=== PATIENT | female | born 2000 | race African-American/Black ===

== ENCOUNTER 2021-05-12 21:07 | Emergency (ER) | payer MEDICAID ==
[~2021-05-12] VITALS: Ht 160 cm; Wt 48.0 kg
[2021-05-12] MEDS ORDERED: ACETAMINOPHEN 325MG TABLET PO STA (21:33)
[2021-05-12] MEDS ORDERED: ONDANSETRON HCL 4MG/2ML INJ IV STA (22:47)
[2021-05-12] MEDS ORDERED: MORPHINE SULFATE 4 MG/ML CPJ (NOT FOR IM USE) IV STA (22:47)
[2021-05-12] MEDS ORDERED: SODIUM CHLORIDE 0.9% 1,000 ML IV ONE (23:00)
[2021-05-12 23:28] VITALS: BP 116/79
[2021-05-12 23:47] LABS: BASOPHILS % 0.4 % (0.0-2.0); EOSINOPHILS % 0.8 % (0.0-5.0); HEMATOCRIT. 36.1 % (36.0-48.0); HEMOGLOBIN. 11.9 g/dL (12.0-16.0); LYMPHOCYTES % 21.8 % (20.0-50.0); MEAN CORPUSCULAR HEMOGLOBIN 28.1 pg (28.0-32.0); MEAN CORPUSCULAR VOLUME 85.2 fL (81.0-99.0); MEAN PLATELET VOLUME 8.5 fl (7.4-10.4); MONOCYTES % 6.2 % (2.0-8.0); NEUTROPHILS % 70.8 % (40.0-76.0); PLATELET 217 x1000/uL (130-400); RED BLOOD CELL COUNT 4.23 mill/uL (4.2-5.4); RED CELL DISTRIBUTION WIDTH 13.1 % (11.6-14.6)
[2021-05-12 23:56] LABS: CLARITY URINE CLOUDY (CLEAR); COLOR URINE YELLOW (YELLOW); KETONES URINE NEGATIVE (NEGATIVE); LEUKOCYTE ESTERASE URINE 2+ (NEGATIVE); NITRITE URINE NEGATIVE (NEGATIVE); OCCULT BLOOD URINE 1+ (NEGATIVE); PH URINE 6.5 (4.5-8.0); PROTEIN URINE NEGATIVE (NEGATIVE); UROBILINOGEN URINE 0.2 E.U./dL (0.2-1.0)
[2021-05-13 00:17] LABS: CHLORIDE 108 mEq/L (98-107)
[2021-05-13 00:22] LABS: HCG SCREEN NEGATIVE
[2021-05-13] MEDS ORDERED: IBUP-2028 MT (00:56)
[2021-05-13] MEDS ORDERED: NITR-87 MT (00:59)
== END 2021-05-13 01:16 | disposition home or self-care (01) ==
LOC: ER 21:07
DX: N39.0 Urinary tract infection, site not specified (principal)
CPT/HCPCS: 36415; 76830; 76856; 80053; 81003; 81025; 83690; 84703; 85025; 96361; 96374; 96375; 99284; J2270; J2405; J7030